=== PATIENT | male | born 1950 | race Caucasian/White ===

== ENCOUNTER → 2018-04-14 | Outpatient (CLI) | payer OTHER | LOC: ULTRA 07:29 | DX: D73.89 Other diseases of spleen (principal) ==

== ENCOUNTER → 2021-06-05 | Outpatient (CLI) | payer OTHER | LOC: CAT 11:14 | PROVIDERS: ATTEND Internal Medicine | DX: Z13.6 Encounter for screening for cardiovascular disorders (principal); I25.10 Atherosclerotic heart disease of native coronary artery without angina pectoris ==